=== PATIENT | male | born 1985 | race Caucasian/White ===

== ENCOUNTER 2016-09-20 13:18 | Inpatient (IN) | payer MEDICARE, MEDICAID ==
[~2016-09-20] VITALS: Ht 185.4 cm; Wt 111.6 kg
[2016-09-20] MEDS ORDERED: ZOLPIDEM TARTRATE 10 MG TABLET PO PRN (16:45)
[2016-09-20] MEDS ORDERED: OLAN10TA6 PO (17:13)
[2016-09-20] MEDS ORDERED: ESCI10TA PO (17:13)
[2016-09-20] MEDS ORDERED: GABA-531 PO (17:13)
[2016-09-20 17:44] VITALS: BP 120/80
[2016-09-20] MEDS ORDERED: ACETAMINOPHEN 325 MG TABLET PO PRN (18:00)
[2016-09-20] MEDS ORDERED: PNEUMOCOCCAL VACCINE POLYVALENT 0.5 ML VIAL [PPSV23] IM ONE (19:00)
[2016-09-21 00:54] VITALS: BP 138/83
[2016-09-21 08:04] VITALS: BP 123/74
[2016-09-21 08:09] LABS: BASOPHILS # (AUTO) 0.02 K/uL (0.00-0.20); BASOPHILS % (AUTO) 0.4 % (0.0-2.0); EOSINOPHILS # (AUTO) 0.07 K/uL (0.00-0.70); EOSINOPHILS % (AUTO) 1.56 % (1.0-6.0); HEMATOCRIT 40.9 % (41-53); HEMOGLOBIN 13.7 g/dL (13.5-17.5); LYMPHOCYTES # (AUTO) 1.1 K/uL (1.0-4.8); LYMPHOCYTES % (AUTO) 23.5 % (22.0-44.0); MEAN CORPUSCULAR HGB CONC 33.5 G/dL (31.0-37.0); MEAN CORPUSCULAR VOLUME 87 fL (80-100); MONOCYTES # (AUTO) 0.3 K/uL (0.1-1.0); MONOCYTES % (AUTO) 6.6 % (2.0-9.0); NEUTROPHILS # (AUTO) 3.2 K/uL (1.8-7.7); PLATELET COUNT (AUTO) 148 K/uL (150-450); RED BLOOD CELL COUNT(AUTO) 4.72 MIL/uL (4.50-5.90); RED CELL DISTRIBUTION WIDTH 16.8 % (11.5-14.5); WHITE BLOOD COUNT (AUTO) 4.6 K/uL (4.5-11.0)
[2016-09-21] MEDS: NICOTINE 21 MG/24 HOUR PATCH TD SCH (08:22)
[2016-09-21 08:43] LABS: HEMOGLOBIN A1C 5.2 % (4.5-6.2)
[2016-09-21 08:51] LABS: ALANINE AMINOTRANSFERASE 25 U/L (12-78); ALBUMIN 3.3 g/dL (3.4-5.0); ANION GAP 8 mmol/L (8-16); ASPARTATE AMINOTRANSFERASE 16 U/L (15-37); BILIRUBIN,TOTAL 0.4 mg/dL (0.1-1.0); CALCIUM, TOTAL 8.6 mg/dL (8.8-10.5); CARBON DIOXIDE 27 mmol/L (22-29); CHLORIDE 106 mmol/L (98-107); CHOL/HDL RATIO 4.4 (4.2-7.3); CREATININE 0.91 mg/dL (0.60-1.30); GLOMERULAR FILTR. RATE CALC > 60 mL/min (>60); POTASSIUM 3.8 mmol/L (3.5-5.1); SODIUM SERUM 141 mmol/L (136-145); TOTAL PROTEIN, SERUM 6.3 g/dL (6.4-8.2); UREA NITROGEN, BLOOD 13 mg/dL (7-18)
[2016-09-21] MEDS: IBUPROFEN 600 MG TABLET PO PRN (14:34)
[2016-09-21 14:35] VITALS: BP 138/83
[2016-09-21] MEDS: LORazepam 2 MG TABLET PO PRN (14:41)
[2016-09-21] MEDS: HALOPERIDOL 5 MG TABLET PO PRN (15:14)
[2016-09-21 16:03] VITALS: BP 135/85
[2016-09-21] MEDS: OLANZapine 5 MG TABLET PO SCH (21:04)
[2016-09-22 03:05] VITALS: BP 138/86
[2016-09-22] MEDS: LORazepam 2 MG TABLET PO PRN ×3 (03:07→17:15)
[2016-09-22] MEDS: IBUPROFEN 600 MG TABLET PO PRN ×2 (03:08→12:16)
[2016-09-22 08:12] VITALS: BP 110/70
[2016-09-22] MEDS: NICOTINE 21 MG/24 HOUR PATCH TD SCH (08:25)
[2016-09-22] MEDS: FLUoxetine HCL 20 MG CAPSULE PO SCH (08:25)
[2016-09-22] MEDS: HALOPERIDOL 5 MG TABLET PO PRN (12:15)
[2016-09-22 12:16] VITALS: BP 116/74
[2016-09-22 16:08] VITALS: BP 119/68
[2016-09-22] MEDS: OLANZapine 5 MG TABLET PO SCH (20:43)
[2016-09-23 00:44] VITALS: BP 116/72
[2016-09-23] MEDS: LORazepam 2 MG TABLET PO PRN ×4 (00:47→23:43)
[2016-09-23 04:32] VITALS: BP 119/77
[2016-09-23] MEDS: HALOPERIDOL 5 MG TABLET PO PRN ×3 (04:36→23:44)
[2016-09-23] MEDS: IBUPROFEN 600 MG TABLET PO PRN ×3 (04:37→23:44)
[2016-09-23 08:15] VITALS: BP 136/70
[2016-09-23] MEDS: NICOTINE 21 MG/24 HOUR PATCH TD SCH (08:27)
[2016-09-23] MEDS: FLUoxetine HCL 20 MG CAPSULE PO SCH (08:27)
[2016-09-23 13:14] VITALS: BP 124/72
[2016-09-23 16:05] VITALS: BP 117/71
[2016-09-23] MEDS: OLANZapine 5 MG TABLET PO SCH (20:36)
[2016-09-24 08:06] VITALS: BP 105/69
[2016-09-24] MEDS: FLUoxetine HCL 20 MG CAPSULE PO SCH (08:36)
[2016-09-24] MEDS: NICOTINE 21 MG/24 HOUR PATCH TD SCH (08:37)
[2016-09-24] MEDS: HALOPERIDOL 5 MG TABLET PO PRN ×2 (08:37→16:12)
[2016-09-24] MEDS: IBUPROFEN 600 MG TABLET PO PRN ×2 (08:38→16:12)
[2016-09-24 09:30] VITALS: BP 128/84
[2016-09-24] MEDS: LORazepam 2 MG TABLET PO PRN ×3 (09:33→20:07)
[2016-09-24 12:28] VITALS: BP 120/82
[2016-09-24 16:06] VITALS: BP 129/78
[2016-09-24] MEDS: OLANZapine 5 MG TABLET PO SCH (20:07)
[2016-09-25 07:07] VITALS: BP 108/65
[2016-09-25 08:19] VITALS: BP 127/71
[2016-09-25] MEDS: FLUoxetine HCL 20 MG CAPSULE PO SCH (08:58)
[2016-09-25] MEDS: NICOTINE 21 MG/24 HOUR PATCH TD SCH (08:58)
[2016-09-25] MEDS: LORazepam 2 MG TABLET PO PRN ×2 (09:07→15:33)
[2016-09-25 09:35] VITALS: BP 124/72
[2016-09-25] MEDS: IBUPROFEN 600 MG TABLET PO PRN ×2 (09:35→17:13)
[2016-09-25] MEDS: HALOPERIDOL 5 MG TABLET PO PRN (13:11)
[2016-09-25 16:04] VITALS: BP 112/77
[2016-09-25 17:11] VITALS: BP 115/78
[2016-09-25] MEDS: OLANZapine 5 MG TABLET PO SCH (20:05)
[2016-09-26 02:25] VITALS: BP 125/64
[2016-09-26 08:08] VITALS: BP 122/65
[2016-09-26] MEDS: FLUoxetine HCL 20 MG CAPSULE PO SCH (08:22)
[2016-09-26] MEDS: NICOTINE 21 MG/24 HOUR PATCH TD SCH (08:23)
[2016-09-26] MEDS: LORazepam 2 MG TABLET PO PRN ×3 (08:27→16:53)
[2016-09-26] MEDS: IBUPROFEN 600 MG TABLET PO PRN ×2 (08:28→14:43)
[2016-09-26 14:43] VITALS: BP 125/75
[2016-09-26 16:00] VITALS: BP 124/77
[2016-09-26 16:11] VITALS: BP 124/77
[2016-09-26] MEDS: OLANZapine 5 MG TABLET PO SCH (20:17)
[2016-09-27 07:19] VITALS: BP 112/71
[2016-09-27 09:11] VITALS: BP 103/69
[2016-09-27] MEDS: FLUoxetine HCL 20 MG CAPSULE PO SCH (09:34)
[2016-09-27] MEDS: LORazepam 2 MG TABLET PO PRN ×2 (09:34→13:51)
[2016-09-27] MEDS: IBUPROFEN 600 MG TABLET PO PRN (09:34)
[2016-09-27] MEDS: NICOTINE 21 MG/24 HOUR PATCH TD SCH (09:35)
[2016-09-27] MEDS ORDERED: OLAN5TAB2 PO (15:04)
[2016-09-27] MEDS ORDERED: FLUO-191 PO (15:04)
[2016-09-27 16:43] VITALS: BP 128/80
== END 2016-09-27 18:55 | disposition home or self-care (01) | DRG 885 ==
LOC: B2X 16:38 → B2S 09-25 19:02
PROVIDERS: ADMIT Psychiatry & Neurology Child & Adolescent Psychiatry; ATTEND Psychiatry & Neurology Psychiatry
DX: F25.0 Schizoaffective disorder, bipolar type (principal); Z72.0 Tobacco use; D69.6 Thrombocytopenia, unspecified; I10 Essential (primary) hypertension; L30.8 Other specified dermatitis
CPT/HCPCS: 83036; 84439; 84443

== ENCOUNTER 2018-01-31 15:07 | Inpatient (IN) | payer MEDICARE, MEDICAID ==
[~2018-01-31 15:07] MED LIST: FLUO-191 PO; OLAN5TAB2 PO
[2018-01-31] MEDS ORDERED: HALOPERIDOL 5 MG TABLET PO PRN (18:00)
[2018-01-31] MEDS ORDERED: ZOLPIDEM TARTRATE 10 MG TABLET PO PRN (18:00)
[2018-01-31 18:16] VITALS: BP_SYST 132; BP_DIAS 94; BP_DIAS 99
[2018-01-31] MEDS ORDERED: ONDANSETRON HCL 4 MG TABLET PO PRN (18:45)
[2018-01-31] MEDS ORDERED: LOPERAMIDE HCL 2 MG CAPSULE PO PRN (18:45)
[2018-01-31] MEDS ORDERED: MAG HYDROX/AL HYDROX/SIMETH ES 30 ML SUSPENSION UDCUP PO PRN (18:45)
[2018-01-31] MEDS ORDERED: PETROLATUM,WHITE 71 GM JELLY TP PRN (18:45)
[2018-01-31] MEDS ORDERED: CloNIDine HCL 0.1 MG TABLET PO PRN (18:45)
[2018-01-31] MEDS ORDERED: ALBUTEROL SULFATE HFA 90 MCG/PUFF 8 GM INHALER IH PRN (18:45)
[2018-01-31] MEDS ORDERED: MAGNESIUM HYDROXIDE SUSPENSION 30 ML UDCUP PO PRN (18:45)
[2018-01-31] MEDS ORDERED: GuaiFENesin/D-METHORPHAN [SUGAR-FREE] 200-20MG/10 ML SYRUP UDCUP PO PRN (18:45)
[2018-01-31] MEDS ORDERED: ACETAMINOPHEN 325 MG TABLET PO PRN (18:45)
[2018-01-31] MEDS ORDERED: DOCUSATE SODIUM 100 MG CAPSULE PO PRN (18:45)
[2018-01-31] MEDS ORDERED: PNEUMOCOCCAL VACCINE POLYVALENT 0.5 ML VIAL [PPSV23] IM ONE (19:15)
[2018-02-01 05:05] VITALS: BP 139/88
[2018-02-01 08:14] VITALS: BP 128/71
[2018-02-01 08:21] LABS: BASOPHILS % (AUTO) 0.4 % (0.0-2.0); EOSINOPHILS % (AUTO) 0.7 % (1.0-6.0); HEMATOCRIT 36.1 % (41-53); HEMOGLOBIN 12.9 g/dL (13.5-17.5); LYMPHOCYTES # (AUTO) 0.9 K/uL (1.0-4.8); LYMPHOCYTES % (AUTO) 21.9 % (22.0-44.0); MEAN CORPUSCULAR HEMOGLOBIN 32.1 pg (26.0-34.0); MEAN CORPUSCULAR HGB CONC 35.7 G/dL (31.0-37.0); MEAN CORPUSCULAR VOLUME 90 fL (80-100); MONOCYTES # (AUTO) 0.4 K/uL (0.1-1.0); MONOCYTES % (AUTO) 8.7 % (2.0-9.0); NEUTROPHILS # (AUTO) 2.9 K/uL (1.8-7.7); NEUTROPHILS % (AUTO) 68.3 % (40.0-70.0); PLATELET COUNT (AUTO) 144 K/uL (150-450); RED BLOOD CELL COUNT(AUTO) 4.02 MIL/uL (4.50-5.90); RED CELL DISTRIBUTION WIDTH 13.7 % (11.5-14.5)
[2018-02-01 08:45] LABS: HEMOGLOBIN A1C 5.2 % (4.5-6.2)
[2018-02-01 09:08] LABS: ALANINE AMINOTRANSFERASE 23 U/L (12-78); ALBUMIN 2.7 g/dL (3.4-5.0); ALKALINE PHOSPHATASE 53 U/L (46-116); ANION GAP 7 mmol/L (8-16); ASPARTATE AMINOTRANSFERASE 16 U/L (15-37); BILIRUBIN,TOTAL 0.9 mg/dL (0.1-1.0); CALCIUM, TOTAL 8.3 mg/dL (8.8-10.5); CARBON DIOXIDE 30 mmol/L (22-29); CHLORIDE 102 mmol/L (98-107); CHOL/HDL RATIO 5.4 (4.2-7.3); CHOLESTEROL 163 mg/dL (131-200); CREATININE 0.78 mg/dL (0.60-1.30); GLOMERULAR FILTR. RATE CALC > 60 mL/min (>60); GLUCOSE,RANDOM 103 mg/dL (70-110); HDL CHOLESTEROL 30 mg/dL (40-60); LDL CHOL (CALC.) 109 mg/dL (0-130); POTASSIUM 3.2 mmol/L (3.5-5.1); SODIUM SERUM 139 mmol/L (136-145); THYROID STIMULATING HORMONE 0.93 uIU/mL (0.36-3.74); TOTAL PROTEIN, SERUM 6.3 g/dL (6.4-8.2); TRIGLYCERIDES 118 mg/dL (15-150); UREA NITROGEN, BLOOD 6 mg/dL (7-18)
[2018-02-01 11:06] LABS: FREE T4 (FREE THYROXINE) 0.98 ng/dL (0.76-1.46)
[2018-02-01] MEDS: LORazepam 2 MG TABLET PO PRN (11:47)
[2018-02-01] MEDS ORDERED: HALOPERIDOL DECANOATE 100 MG/ML VIAL IM SCH (12:00)
[2018-02-01] MEDS ORDERED: POTASSIUM CHLORIDE 20 MEQ ER TABLET PO ONE (14:00)
[2018-02-01 16:00] VITALS: BP 135/70
[2018-02-01] MEDS: HALOPERIDOL 5 MG TABLET PO SCH (20:37)
[2018-02-02 06:06] VITALS: BP 133/77
[2018-02-02 08:13] VITALS: BP 130/87
[2018-02-02 08:39] LABS: BASOPHILS % (AUTO) 0.3 % (0.0-2.0); EOSINOPHILS % (AUTO) 0.3 % (1.0-6.0); HEMATOCRIT 38.6 % (41-53); HEMOGLOBIN 13.9 g/dL (13.5-17.5); LYMPHOCYTES # (AUTO) 1.2 K/uL (1.0-4.8); LYMPHOCYTES % (AUTO) 14.4 % (22.0-44.0); MEAN CORPUSCULAR HEMOGLOBIN 32.1 pg (26.0-34.0); MEAN CORPUSCULAR HGB CONC 35.9 G/dL (31.0-37.0); MEAN CORPUSCULAR VOLUME 89 fL (80-100); MONOCYTES # (AUTO) 0.7 K/uL (0.1-1.0); MONOCYTES % (AUTO) 7.7 % (2.0-9.0); NEUTROPHILS # (AUTO) 6.5 K/uL (1.8-7.7); NEUTROPHILS % (AUTO) 77.3 % (40.0-70.0); PLATELET COUNT (AUTO) 204 K/uL (150-450); RED BLOOD CELL COUNT(AUTO) 4.32 MIL/uL (4.50-5.90); RED CELL DISTRIBUTION WIDTH 13.8 % (11.5-14.5)
[2018-02-02] MEDS: FOLIC ACID 1 MG TABLET PO SCH (08:40)
[2018-02-02 09:02] LABS: ALANINE AMINOTRANSFERASE 22 U/L (12-78); ALBUMIN 3.1 g/dL (3.4-5.0); ALKALINE PHOSPHATASE 55 U/L (46-116); ANION GAP 10 mmol/L (8-16); ASPARTATE AMINOTRANSFERASE 18 U/L (15-37); BILIRUBIN,TOTAL 0.9 mg/dL (0.1-1.0); CALCIUM, TOTAL 8.9 mg/dL (8.8-10.5); CARBON DIOXIDE 27 mmol/L (22-29); CHLORIDE 101 mmol/L (98-107); CREATININE 0.86 mg/dL (0.60-1.30); GLOMERULAR FILTR. RATE CALC > 60 mL/min (>60); GLUCOSE,RANDOM 92 mg/dL (70-110); POTASSIUM 3.8 mmol/L (3.5-5.1); SODIUM SERUM 138 mmol/L (136-145); TOTAL PROTEIN, SERUM 7.3 g/dL (6.4-8.2); UREA NITROGEN, BLOOD 5 mg/dL (7-18)
[2018-02-02] MEDS: IBUPROFEN 400 MG TABLET PO PRN ×2 (10:58→16:59)
[2018-02-02] MEDS: LORazepam 2 MG TABLET PO PRN ×2 (10:58→16:59)
[2018-02-02 16:32] VITALS: BP 111/74
[2018-02-02] MEDS: HALOPERIDOL 5 MG TABLET PO SCH (20:34)
[2018-02-03] MEDS: IBUPROFEN 400 MG TABLET PO PRN (06:37)
[2018-02-03] MEDS: LORazepam 2 MG TABLET PO PRN (06:37)
[2018-02-03 06:39] VITALS: BP 137/88
[2018-02-03 08:05] VITALS: BP 136/84
[2018-02-03] MEDS: FOLIC ACID 1 MG TABLET PO SCH (08:07)
[2018-02-03] MEDS ORDERED: HALO5TAB2 PO ×2 (11:21→11:35)
[2018-02-03] MEDS ORDERED: HALO100V4 IM ×2 (11:21→11:35)
== END 2018-02-03 13:30 | disposition home or self-care (01) | DRG 885 ==
LOC: B3A 17:52
DX: F25.0 Schizoaffective disorder, bipolar type (principal); Z28.21 Immunization not carried out because of patient refusal; I10 Essential (primary) hypertension; E87.6 Hypokalemia; D64.9 Anemia, unspecified; D72.819 Decreased white blood cell count, unspecified; F10.10 Alcohol abuse, uncomplicated; F15.10 Other stimulant abuse, uncomplicated; M10.9 Gout, unspecified; F17.200 Nicotine dependence, unspecified, uncomplicated; F19.10 Other psychoactive substance abuse, uncomplicated; Z71.41 Alcohol abuse counseling and surveillance of alcoholic; Z71.6 Tobacco abuse counseling; F41.9 Anxiety disorder, unspecified
CPT/HCPCS: 83036; 84439; 84443; 87081; 90686; 90732; J1631